=== PATIENT | male | born 1980 | race Hispanic/Latino ===

== ENCOUNTER 2019-04-07 08:35 | Emergency (ER) | payer SELFPAY ==
[2019-04-07 08:40] VITALS: BP 128/50
[2019-04-07] MEDS ORDERED: ONDANSETRON 4 MG ODT TAB PO ONE (08:54)
[2019-04-07] MEDS ORDERED: KETOROLAC 60 MG/2 ML INJ IM ONE (08:54)
[2019-04-07] MEDS ORDERED: DICYCLOMINE 20 MG/2 ML INJ IM ONE (08:54)
--- NOTE | 2019-04-07 09:41 | Emergency Department Report ---
ED General Adult HPI - General Chief complaint: Nausea/Vomiting/Diarrhea Stated complaint: ABD/BODY/N/V Time Seen by Provider: 04/07/19 08:54 Source: patient Mode of arrival: Ambulatory Limitations: No Limitations - History of Present Illness Initial comments: Patient is a 39-year-old male who is presenting with nausea vomiting diarrhea for the past 3 days. Patient also is complaining of mild cough abdominal cramping and body aches. Patient's and child been ill as well. Patient denies seeing blood in the vomit or stool. Patient is afebrile. Severity scale (0 -10): 6 Associated Symptoms: cough, headaches, nausea/vomiting. denies: confusion, chest pain, diaphoresis, fever/chills, loss of appetite, malaise, rash, seizure, shortness of breath, syncope - Related Data Previous Rx's Medication Instructions Recorded Last Taken Type Dicyclomine [Bentyl] 20 mg PO QID #10 tablet 04/07/19 Unknown Rx Ibuprofen [Motrin 800 MG tab] 800 mg PO Q8HR PRN #10 tablet 04/07/19 Unknown Rx Ondansetron [Zofran Odt] 4 mg PO Q8HR #10 tab.rapdis 04/07/19 Unknown Rx traMADol [Ultram] 50 mg PO Q6HR PRN #12 tablet 04/07/19 Unknown Rx Allergies Allergy/AdvReac Type Severity Reaction Status Date / Time No Known Allergies Allergy Unverified 04/07/19 08:38 ED Review of Systems ROS: Stated complaint: ABD/BODY/N/V Other details as noted in HPI Comment: All other systems reviewed and negative ED Past Medical Hx - Past Medical History Previous Medical History?: No - Surgical History Past Surgical History?: No - Social History Smoking Status: Current Every Day Smoker Substance Use Type: None - Medications Home Medications: Home Medications Medication Instructions Recorded Confirmed Last Taken Type Dicyclomine [Bentyl] 20 mg PO QID #10 tablet 04/07/19 Unknown Rx Ibuprofen [Motrin 800 MG tab] 800 mg PO Q8HR PRN #10 tablet 04/07/19 Unknown Rx Ondansetron [Zofran Odt] 4 mg PO Q8HR #10 tab.rapdis 04/07/19 Unknown Rx traMADol [Ultram] 50 mg PO Q6HR PRN #12 tablet 04/07/19 Unknown Rx ED Physical Exam - General Limitations: No Limitations General appearance: alert, in no apparent distress - Head Head exam: Present: atraumatic, normocephalic - Eye Eye exam: Present: normal appearance, PERRL, EOMI - ENT ENT exam: Present: mucous membranes moist - Neck Neck exam: Present: normal inspection - Respiratory Respiratory exam: Present: normal lung sounds bilaterally. Absent: respiratory distress, wheezes, rales, rhonchi - Cardiovascular Cardiovascular Exam: Present: regular rate, normal rhythm, normal heart sounds. Absent: systolic murmur, diastolic murmur, rubs, gallop - GI/Abdominal GI/Abdominal exam: Present: soft, normal bowel sounds. Absent: distended, tenderness, guarding, rebound - Rectal Rectal exam: Present: deferred - Extremities Exam Extremities exam: Present: normal inspection - Back Exam Back exam: Present: normal inspection - Neurological Exam Neurological exam: Present: alert, oriented X3 - Psychiatric Psychiatric exam: Present: normal affect, normal mood - Skin Skin exam: Present: warm, dry, intact, normal color. Absent: rash ED Course Vital Signs 04/07/19 08:38 Temperature 97.6 F Pulse Rate 76 Respiratory 18 Rate Blood Pressure 128/50 O2 Sat by Pulse 97 Oximetry ED Medical Decision Making - Medical Decision Making This is a 39-year-old male who is presenting with nausea vomiting diarrhea. Last episode of vomiting was actually last night. Patient was given medications for symptomatic relief and can be discharged home. Critical care attestation.: If time is entered above; I have spent that time in minutes in the direct care of this critically ill patient, excluding procedure time. ED Disposition Clinical Impression: Influenza, Gastroenteritis Disposition: DC-01 TO HOME OR SELFCARE Is pt being admited?: No Does the pt Need Aspirin: No Condition: Stable Instructions: Gastroenteritis (ED), Influenza (ED) Referrals: NADJA SALINAS MD [Referring] - 3-5 Days Time of Disposition: 09:44
== END 2019-04-07 10:53 | disposition home or self-care (01) ==
LOC: ED 08:35
DX: K52.9 Noninfective gastroenteritis and colitis, unspecified (principal); J11.1 Influenza due to unidentified influenza virus with other respiratory manifestations; F17.200 Nicotine dependence, unspecified, uncomplicated; Z79.1 Long term (current) use of non-steroidal anti-inflammatories (NSAID); Z79.899 Other long term (current) drug therapy
CPT/HCPCS: 96372; 99282; J0500; J1885; Q0162